=== PATIENT | male | born 1960 | race Two or more races ===

== ENCOUNTER 2019-12-10 11:05 | Inpatient (IN) | payer MEDICARE, MEDICAID ==
[2019-12-10] VITALS (10 sets, daily range): BP systolic 113–138; BP diastolic 50–73
[~2019-12-10] VITALS: Ht 188 cm; Wt 88.9 kg
[2019-12-10 11:54] LABS: HEMATOCRIT. 29.5 % (42.0-52.0); MEAN CORPUSCULAR VOLUME 88.2 fL (80.0-94.0); MEAN PLATELET VOLUME 8.4 fl (7.4-10.4); PLATELET 219 x1000/uL (130-400); RED BLOOD CELL COUNT 3.35 mill/uL (4.7-6.1); RED CELL DISTRIBUTION WIDTH 15.8 % (11.6-14.6)
[2019-12-10 12:01] LABS: CHLORIDE 93 mEq/L (98-107)
[2019-12-10 12:25] LABS: BG BASE EXCESS -14.7 mmol/L (-2.0-2.0); BG CARBOXYHEMOGLOBIN 0.2 % (0.5-1.5); BG DEOXYHEMOGLOBIN 5.2 % (0.0-5.0); BG FRACTION INSPIRED OXYGEN 21; BG HCO3 ACT 10.6 mmol/L (22.0-26.0); BG METHEMOGLOBIN 0.3 % (0.0-1.5); BG OXYGEN SATURATION 94.8 % (92.0-98.5); BG OXYHEMOGLOBIN 94.3 % (94.0-97.0); BG PCO2 23.6 mmHg (35.0-45.0); BG PH 7.269 (7.350-7.450); BG PO2 92.4 mmHg (75.0-100.0); BG SAMPLE SITE RIGHT RADIAL; BG TOTAL HEMOGLOBIN 10.1 g/dL (12.0-18.0); BG VENT MODE ROOM AIR
[2019-12-10] MEDS ORDERED: INSULIN REGULAR (HUMULIN R) 300UNITS/3ML IV ONE (12:30)
[2019-12-10] MEDS ORDERED: SODIUM BICARBONATE 8.4% 1 MEQ/ML 50ML SYR IV ONE (12:30)
[2019-12-10] MEDS ORDERED: CALCIUM CHLORIDE 1GM/10ML SYR IV ONE (12:30)
[2019-12-10] MEDS ORDERED: DEXTROSE 50% WATER 50ML SYRINGE IV ONE (12:30)
[2019-12-10 12:37] LABS: PHOSPHORUS 9.5 mg/dL (2.5-4.9)
[2019-12-10 12:48] LABS: PLATELET ESTIMATE NORMAL
[2019-12-10 12:51] LABS: PARTIAL THROMBOPLASTIN TIME 27.3 sec (23.4-31.0); PROTHROMBIN TIME 10.9 sec (9.6-11.0)
[2019-12-10] MEDS ORDERED: LIDOCAINE HCL 1% 20ML VIAL (Pyxis) INJ ONE (12:57)
[2019-12-10] MEDS ORDERED: CLONIDINE 0.1MG TABLET PO PRN (13:30)
[2019-12-10] MEDS ORDERED: ONDANSETRON HCL 4MG/2ML INJ IV PRN (13:30)
[2019-12-10] MEDS ORDERED: ACETAMINOPHEN 325MG TABLET PO PRN ×2 (13:30→14:30)
[2019-12-10] MEDS ORDERED: DOCUSATE SODIUM 100MG CAPSULE PO PRN (13:30)
[2019-12-10] MEDS ORDERED: MAGNESIUM/ALUMINUM HYDROXIDE/SIMETHICONE 30ML UDC PO PRN (14:30)
[2019-12-10] MEDS ORDERED: HYDROCODONE/ACETAMINOPHEN 5/325MG TABLET PO PRN (17:30)
[2019-12-10] MEDS: HYDROMORPHONE HCL/PF 2MG/ML CPJ IV PRN (19:57)
[2019-12-10] MEDS: DIPHENHYDRAMINE 50MG/ML VIAL IV PRN (21:12)
[2019-12-10 21:33] LABS: PHOSPHORUS 5.1 mg/dL (2.5-4.9)
[2019-12-11] VITALS (24 sets, daily range): BP systolic 124–193; BP diastolic 61–95
[2019-12-11] MEDS: HYDROMORPHONE HCL/PF 2MG/ML CPJ IV PRN ×3 (05:21→21:46)
[2019-12-11] MEDS: SODIUM CHLORIDE 0.9% INJ 3ML FLUSH IVF SCH ×3 (06:10→21:44)
[2019-12-11 06:13] LABS: CHLORIDE 103 mEq/L (98-107)
[2019-12-11 06:17] LABS: BASOPHILS % 0.4 % (0.0-2.0); EOSINOPHILS % 8.6 % (0.0-5.0); HEMATOCRIT. 26.8 % (42.0-52.0); HEMOGLOBIN. 9.1 g/dL (14.0-18.0); LYMPHOCYTES % 8.6 % (20.0-50.0); MEAN CORPUSCULAR HEMOGLOBIN 29.2 pg (28.0-32.0); MEAN CORPUSCULAR VOLUME 86.3 fL (80.0-94.0); MEAN PLATELET VOLUME 7.6 fl (7.4-10.4); MONOCYTES % 8.1 % (2.0-8.0); NEUTROPHILS % 74.3 % (40.0-76.0); PLATELET 157 x1000/uL (130-400); RED BLOOD CELL COUNT 3.11 mill/uL (4.7-6.1)
[2019-12-11 06:24] LABS: LDL CHOLESTEROL 71 mg/dL (5-100)
[2019-12-11 06:25] LABS: HDL CHOLESTEROL 50 mg/dL (40-59)
[2019-12-11] MEDS: FOLIC ACID/VITAMIN B COMP W-C TABLET PO SCH (08:30)
[2019-12-11] MEDS: CALCIUM ACETATE 667MG CAPSULE PO SCH ×3 (08:30→17:59)
[2019-12-11] MEDS: HYDROCODONE/ACETAMINOPHEN 10/325MG TABLET PO PRN ×2 (08:33→18:28)
[2019-12-11] MEDS: AMLODIPINE 5MG TABLET PO SCH ×2 (11:00→15:23)
[2019-12-11] MEDS: CLONIDINE 0.1MG TABLET PO PRN (22:10)
[2019-12-12] VITALS (26 sets, daily range): BP systolic 138–210; BP diastolic 62–99
[2019-12-12] MEDS: ONDANSETRON HCL 4MG/2ML INJ IV PRN ×2 (00:06→00:36)
[2019-12-12] MEDS: HYDRALAZINE 20MG/ML VIAL IV PRN ×3 (00:07→02:11)
[2019-12-12] MEDS: SODIUM CHLORIDE 0.9% INJ 3ML FLUSH IVF SCH ×3 (05:34→21:04)
[2019-12-12 06:52] LABS: PROTHROMBIN TIME 10.7 sec (9.6-11.0)
[2019-12-12] MEDS ORDERED: IOHEXOL-300 100 ML BOTTLE ONE (08:05)
[2019-12-12] MEDS ORDERED: SODIUM BICARBONATE 4% (2.4MEQ) 5ML VIAL IV ONE (08:05)
[2019-12-12] MEDS ORDERED: LIDOCAINE HCL 1% 20ML VIAL (Pyxis) INJ ONE (08:06)
[2019-12-12] MEDS ORDERED: HEPARIN 1000 UNITS/ML 10ML ONE (08:06)
[2019-12-12] MEDS: HYDROMORPHONE HCL/PF 2MG/ML CPJ IV PRN ×2 (08:19→19:35)
[2019-12-12] MEDS: AMLODIPINE 5MG TABLET PO SCH ×2 (08:20→20:04)
[2019-12-12] MEDS: FOLIC ACID/VITAMIN B COMP W-C TABLET PO SCH (08:20)
[2019-12-12] MEDS ORDERED: CEFAZOLIN 1000MG PREMIX 50 ML IV ONE (08:30)
[2019-12-12] MEDS ORDERED: FENTANYL CITRATE/PF 50MCG/ML 2ML VIAL ONE (08:36)
[2019-12-12] MEDS ORDERED: HEPARIN 5000 UNITS/ML VIAL IV NR (09:15)
[2019-12-12] MEDS ORDERED: IOHEXOL-300 50 ML BOTTLE IV ONE (09:41)
[2019-12-12] MEDS ORDERED: FENTANYL CITRATE/PF 50MCG/ML 2ML VIAL IV ONE (09:45)
[2019-12-12 12:26] LABS: HEMATOCRIT 25.7 % (42.0-52.0); HEMOGLOBIN 8.8 g/dL (14.0-18.0); MEAN CORPUSCULAR HEMOGLOBIN 29.7 pg (28.0-32.0); MEAN CORPUSCULAR VOLUME 86.7 fL (80.0-94.0); PLATELET 145 x1000/uL (130-400); RED BLOOD CELL COUNT 2.96 mill/uL (4.7-6.1); RED CELL DISTRIBUTION WIDTH 15.9 % (11.6-14.6)
[2019-12-12 12:38] LABS: CHLORIDE 104 mEq/L (98-107)
[2019-12-12] MEDS ORDERED: MAGNESIUM HYDROXIDE 400MG/5ML 30ML UDC PO PRN (14:15)
[2019-12-12] MEDS: HYDRALAZINE HCL 25MG TABLET PO SCH ×2 (14:24→21:04)
[2019-12-12] MEDS: CLONIDINE 0.1MG TABLET PO PRN ×2 (15:09→19:49)
[2019-12-12] MEDS: DOCUSATE SODIUM 100MG CAPSULE PO SCH (18:16)
[2019-12-12] MEDS: CALCIUM ACETATE 667MG CAPSULE PO SCH (18:17)
[2019-12-12] MEDS: DIPHENHYDRAMINE 50MG/ML VIAL IV PRN (21:04)
[2019-12-13] VITALS (11 sets, daily range): BP systolic 127–165; BP diastolic 69–93
[2019-12-13] MEDS: DIPHENHYDRAMINE 50MG/ML VIAL IV PRN (02:53)
[2019-12-13] MEDS: HYDRALAZINE HCL 25MG TABLET PO SCH ×2 (05:23→14:00)
[2019-12-13] MEDS: HYDROCODONE/ACETAMINOPHEN 10/325MG TABLET PO PRN (05:23)
[2019-12-13] MEDS: SODIUM CHLORIDE 0.9% INJ 3ML FLUSH IVF SCH ×2 (05:23→14:51)
[2019-12-13] MEDS: CLONIDINE 0.1MG TABLET PO PRN (05:26)
[2019-12-13] MEDS: FOLIC ACID/VITAMIN B COMP W-C TABLET PO SCH (08:21)
[2019-12-13] MEDS: CALCIUM ACETATE 667MG CAPSULE PO SCH ×3 (08:22→17:23)
[2019-12-13] MEDS: AMLODIPINE 5MG TABLET PO SCH (08:22)
[2019-12-13] MEDS: HYDROMORPHONE HCL/PF 2MG/ML CPJ IV PRN (08:23)
[2019-12-13] MEDS: DOCUSATE SODIUM 100MG CAPSULE PO SCH ×2 (10:27→17:23)
[2019-12-13] MEDS ORDERED: MORPHINE SULFATE 4 MG/ML CPJ (NOT FOR IM USE) IV PRN (13:45)
== END 2019-12-13 18:22 | DRG 252 ==
LOC: ER 11:05 → EDBEDREQSVC 12:45 → 3WST 12:57 → EDBEDREQ 13:05 → SUPCPDRO 13:06 → ENRESERV 14:01
PROVIDERS: ADMIT Internal Medicine; ATTEND Internal Medicine
PROC: B54BZZA Ultrasonography of Right Lower Extremity Veins, Guidance (ICD-10-PCS; 2019-12-10)
PROC: 06HY33Z Insertion of Infusion Device into Lower Vein, Percutaneous Approach (ICD-10-PCS; 2019-12-10)
PROC: 5A1D70Z Performance of Urinary Filtration, Intermittent, Less than 6 Hours Per Day (ICD-10-PCS; 2019-12-10)
PROC: 5A1D70Z Performance of Urinary Filtration, Intermittent, Less than 6 Hours Per Day (ICD-10-PCS; 2019-12-11)
PROC: B51W1ZZ Fluoroscopy of Dialysis Shunt/Fistula using Low Osmolar Contrast (ICD-10-PCS; 2019-12-11)
PROC: 05WY3JZ Revision of Synthetic Substitute in Upper Vein, Percutaneous Approach (ICD-10-PCS; principal; 2019-12-12)
PROC: 03WY3JZ Revision of Synthetic Substitute in Upper Artery, Percutaneous Approach (ICD-10-PCS; 2019-12-12)
PROC: B51V1ZZ Fluoroscopy of Other Veins using Low Osmolar Contrast (ICD-10-PCS; 2019-12-12)
PROC: B31N1ZZ Fluoroscopy of Other Upper Arteries using Low Osmolar Contrast (ICD-10-PCS; 2019-12-12)
PROC: B5181ZZ Fluoroscopy of Superior Vena Cava using Low Osmolar Contrast (ICD-10-PCS; 2019-12-12)
PROC: 5A1D70Z Performance of Urinary Filtration, Intermittent, Less than 6 Hours Per Day (ICD-10-PCS; 2019-12-13)
DX: T82.868A Thrombosis due to vascular prosthetic devices, implants and grafts, initial encounter (principal); S32.402A Unspecified fracture of left acetabulum, initial encounter for closed fracture; N18.6 End stage renal disease; S32.502A Unspecified fracture of left pubis, initial encounter for closed fracture; N17.9 Acute kidney failure, unspecified; J90 Pleural effusion, not elsewhere classified; E87.2 Acidosis; I12.0 Hypertensive chronic kidney disease with stage 5 chronic kidney disease or end stage renal disease; I42.9 Cardiomyopathy, unspecified; E87.5 Hyperkalemia; Z99.2 Dependence on renal dialysis; D63.8 Anemia in other chronic diseases classified elsewhere; R00.1 Bradycardia, unspecified; E11.40 Type 2 diabetes mellitus with diabetic neuropathy, unspecified; K40.90 Unilateral inguinal hernia, without obstruction or gangrene, not specified as recurrent; E78.5 Hyperlipidemia, unspecified; E11.22 Type 2 diabetes mellitus with diabetic chronic kidney disease; W18.39XA Other fall on same level, initial encounter; Y93.89 Activity, other specified; Y92.89 Other specified places as the place of occurrence of the external cause; Y99.8 Other external cause status
CPT/HCPCS: 36415; 36600; 36905; 71045; 72192; 76937; 80048; 80053; 80061; 82375; 82805; 83735; 83880; 84100; 84484; 85025; 85027; 93005; 93306; 93970; 97162; 99152; 99153; 99291; C1725; C1752; C1766; C1769; C1887; C2630; J0360; J0690; J1170; J1200; J1644; J1815; J2405; J3010; J3490; Q9967; G0500